=== PATIENT | female | born 1950 | race Caucasian/White ===

== ENCOUNTER 2018-07-28 01:27 | Emergency (ER) | payer OTHER ==
[2018-07-28 02:10] VITALS: BP 142/89
== END 2018-07-28 02:32 | disposition home or self-care (01) ==
LOC: ED 01:27
DX: J03.90 Acute tonsillitis, unspecified (principal); I10 Essential (primary) hypertension; E11.9 Type 2 diabetes mellitus without complications; E78.00 Pure hypercholesterolemia, unspecified
CPT/HCPCS: J0696; J7512